=== PATIENT | male | born 1975 | race Caucasian/White ===

== ENCOUNTER 2016-08-08 04:50 | Emergency (ER) | payer SELFPAY ==
[~2016-08-08] VITALS: Ht 188 cm; Wt 83.9 kg
[~2016-08-08 04:50] MED LIST: DIL100L PO
--- NOTE | 2016-08-08 04:50 | NUR ---
PT [facility] [employer], PREBOOK. TAKEN TO BED 4
[2016-08-08 04:56] VITALS: BP 164/83
--- NOTE | 2016-08-08 05:05 | NUR ---
Dr. Fernandez evaluating patient at bedside.
--- NOTE | 2016-08-08 05:05 | NUR ---
41 Y/O M [facility] [facility] [employer] FOR PREBOOK. PATIENT HAS EPILEPSY AND HE DIDNT TAKE HIS MEDICINES. PT DENIES ANY HX OF HTN. NO S/S OF DISTRESS NOTED. ER MD AT BEDSIDE EVALUATING PT.
[2016-08-08 05:12] VITALS: BP 152/79
--- NOTE | 2016-08-08 05:12 | NUR ---
Patient discharged with v/s stable. Written and verbal after care instructions given and explained. Patient verbalized understanding. Police with in custody. All questions addressed prior to discharge. Advised to follow up with PMD.
== END 2016-08-08 05:12 ==
LOC: MED 04:50
DX: Z02.89 Encounter for other administrative examinations (principal); R03.0 Elevated blood-pressure reading, without diagnosis of hypertension; G40.909 Epilepsy, unspecified, not intractable, without status epilepticus; F17.210 Nicotine dependence, cigarettes, uncomplicated
CPT/HCPCS: 99283

== ENCOUNTER 2019-01-12 22:10 | Emergency (ER) | payer SELFPAY ==
[~2019-01-12] VITALS: Ht 188 cm; Wt 90.7 kg
--- NOTE | 2019-01-12 22:10 | NUR ---
PT [facility]. TAKEN TO BED 2
[2019-01-12 22:12] VITALS: BP 139/78
--- NOTE | 2019-01-12 22:19 | NUR ---
43 Y/O MALE BIBA BLS WITH C/O GENERALIZED BODY ACHES. PER EMS PT WAS FOUND LYING IN STREET AND FOUND BY PD. PT STATES HE HAD AN UNWITNESSED SEIZURE EARLY IN THE DAY. 7/10 BODY ACHES. ETOH INTOXICATION PER EMS. PT STATES HE HAD 10 BEERS EARLIER IN THE DAY. RR EVEN AND UNLABORED. PT CALM AND PLEASANT. AOX3. MEDHX: SEIZURES ALLERGIES: NKA
--- NOTE | 2019-01-12 22:20 | NUR ---
SEIZURE PRECAUTIONS IN PLACE AND PT PLACED ON THE MONITOR AT THIS TIME.
--- NOTE | 2019-01-12 22:59 | NUR ---
Dr. Fernandez examining patient.
[2019-01-12] MEDS ORDERED: MULTIVITAMIN-12 10 ML, THIAMINE 100 MG, FOLIC ACID 1 MG, MAGNESIUM SULFATE 50% 2,000 MG... IV SCH ×5 (23:05)
[2019-01-12] MEDS ORDERED: MULTIVITAMIN-12 10 ML VIAL IV ONE (23:11)
[2019-01-12] MEDS ORDERED: THIAMINE 200 MG/2 ML VIAL ONE (23:11)
[2019-01-12] MEDS ORDERED: FOLIC ACID 5 MG/ML SYR ONE (23:11)
[2019-01-12] MEDS ORDERED: MAG SULF 2000 MG/WATER PREMIX 50 ML IV ONE (23:28)
[2019-01-12 23:34] LABS: BASOPHILS % (AUTO) 0.6 % (0.0-2.0); EOSINOPHILS # (AUTO) 0.2 K/uL (0-0.4); EOSINOPHILS % (AUTO) 3.2 % (0.0-4.0); LYMPHOCYTES # (AUTO) 1.9 K/uL (2.0-11.5); LYMPHOCYTES % (AUTO) 34.4 % (20.5-51.1); MEAN CORPUSCULAR HEMOGLOBIN 31 pg (27-31); MEAN CORPUSCULAR HGB CONC 33 g/dL (33-37); MEAN CORPUSCULAR VOLUME 93.5 fL (80-94); MONOCYTES # (AUTO) 0.3 K/uL (0.8-1.0); MONOCYTES % (AUTO) 5.3 % (1.7-9.3); NEUTROPHILS # (AUTO) 3.1 K/uL (1.8-7.7); NEUTROPHILS % (AUTO) 56.5 % (42.2-75.2); PLATELET COUNT (AUTO) 295 K/uL (140-450); RED BLOOD CELL COUNT(AUTO) 4.49 MIL/uL (4.20-6.10); RED CELL DISTRIBUTION WIDTH 13.4 % (11.6-13.7); WHITE BLOOD COUNT (AUTO) 5.4 K/uL (4.8-10.8)
[2019-01-12 23:47] LABS: ANION GAP 15.6 (8-16); CARBON DIOXIDE 23.5 mmol/L (21-32); CHLORIDE 104 mmol/L (98-107); CREATININE 0.9 mg/dL (0.7-1.3); GFR ARICAN-AMERICAN 118 mL/min (>90); GLUCOSE 97 mg/dL (74-106); POTASSIUM 4.1 mmol/L (3.5-5.1); SODIUM SERUM 139 mmol/L (136-145); UREA NITROGEN, BLOOD 12 mg/dL (7-18)
--- NOTE | 2019-01-12 23:50 | NUR ---
PT GIVEN URINAL. URINE COLLECTED AT THIS TIME.
[2019-01-12 23:54] LABS: ALBUMIN 3.9 g/dL (3.4-5.0); ASPARTATE AMINOTRANSFERASE 18 U/L (15-37); TOTAL BILIRUBIN 0.2 mg/dL (0.0-1.0)
[2019-01-12 23:57] LABS: ACETAMINOPHEN < 0.5 ug/ml (10-30); PHENYTOIN (DILANTIN) 12.7 ug/ml (10.0-20.0); SALICYLATE < 2.8 mg/dL (2.8-20.0)
--- NOTE | 2019-01-13 00:05 | NUR ---
PT RESTING WITH EYES CLOSED. VISIBLE RISE AND FALL OF THE CHEST. RR EVEN AND UNLABORED. PT REMAINS ON THE MONITOR. VSS. WILL CONTINUE TO MONITOR.
[2019-01-13 00:16] LABS: BARBITURATE, URINE NEG. ng/ml (NEG <=200); BENZODIAZEPINE, URINE NEG. ng/mL (NEG <=200); CANNABINOID, URINE NEG. ng/mL (NEG <=50); COCAINE, URINE NEG. ng/mL (NEG <=300); OPIATE, URINE NEG. ng/mL (NEG <=2000); PHENCYCLIDINE SCREEN,URINE NEG. ng/mL (NEG <=25)
[2019-01-13] MEDS ORDERED: PHENYTOIN 100 MG CAPER PO ONE (00:30)
[2019-01-13 00:57] VITALS: BP 131/81
--- NOTE | 2019-01-13 00:57 | NUR ---
Patient discharged with v/s stable. Written and verbal after care instructions given and explained. Patient verbalized understanding. Ambulatory with steady gait. All questions addressed prior to discharge. Advised to follow up with PMD. PT STATES BROTHER IS HIS RIDE HOME
== END 2019-01-13 00:57 | disposition home or self-care (01) ==
LOC: MED 22:10
DX: F10.129 Alcohol abuse with intoxication, unspecified (principal); R56.9 Unspecified convulsions; Z79.899 Other long term (current) drug therapy
CPT/HCPCS: 36415; 80053; 80185; 80305; 85025; 93005; 96360; 99284; A9153; G0480; G0482; J3411; J3475; J3490

== ENCOUNTER 2020-06-24 08:39 | Emergency (ER) | payer SELFPAY ==
[~2020-06-24] VITALS: Ht 188 cm; Wt 86.2 kg
--- NOTE | 2020-06-24 08:39 | NUR ---
Patient BIBA BLS, transferred to bed 7. RN evaluating the patient at bedside.
[2020-06-24 08:45] VITALS: BP 143/78
--- NOTE | 2020-06-24 08:45 | NUR ---
DR ROBERSON AT BEDSIDE EXAMINING PATIENT
[2020-06-24] MEDS ORDERED: NACL 0.9% 1,000 ML IV ONE (08:50)
--- NOTE | 2020-06-24 08:52 | NUR ---
45 Y/O MALE BIBA FOUND ON STREETS, PER EMS PT STATED HE HAD AN UNWITNESSED SEIZURE. PT DENIES LOC, DENIES FEVER/CHILLS, DENIES N/V. PMH: EPILEPSY NKA
[2020-06-24 09:04] LABS: BASOPHILS % (AUTO) 0.4 % (0.0-2.0); EOSINOPHILS # (AUTO) 0.1 K/uL (0-0.4); EOSINOPHILS % (AUTO) 1.3 % (0.0-4.0); HEMATOCRIT 35.3 % (36-52); LYMPHOCYTES # (AUTO) 0.7 K/uL (2.0-11.5); LYMPHOCYTES % (AUTO) 9.8 % (20.5-51.1); MEAN CORPUSCULAR HEMOGLOBIN 32 pg (27-31); MEAN CORPUSCULAR HGB CONC 34 g/dL (33-37); MEAN CORPUSCULAR VOLUME 93.3 fL (80-94); MONOCYTES # (AUTO) 0.6 K/uL (0.8-1.0); MONOCYTES % (AUTO) 8.3 % (1.7-9.3); NEUTROPHILS % (AUTO) 80.2 % (42.2-75.2); PLATELET COUNT (AUTO) 212 K/uL (140-450); RED BLOOD CELL COUNT(AUTO) 3.78 MIL/uL (4.20-6.10); RED CELL DISTRIBUTION WIDTH 14.3 % (11.6-13.7); WHITE BLOOD COUNT (AUTO) 7.5 K/uL (4.8-10.8)
[2020-06-24 09:14] LABS: ANION GAP 12.8 (8-16); CARBON DIOXIDE 30.2 mmol/L (21-32)
--- NOTE | 2020-06-24 09:19 | NUR ---
Pt taken to CT via rkanwal.
--- NOTE | 2020-06-24 09:25 | NUR ---
Patient returned from CT scan.
--- NOTE | 2020-06-24 09:25 | NUR ---
Pt brought back to ER bde 7 via alexandra.
[2020-06-24] MEDS ORDERED: PHENYTOIN 1,000 MG in NACL 0.9% 100 ML IV SCH (10:00)
--- NOTE | 2020-06-24 10:04 | NUR ---
Spoke with pharmacy for dilantin ordered.
--- NOTE | 2020-06-24 10:30 | NUR ---
Pt sleeping, visible equal rise and fall of chest, VSS, will continue to monitor.
--- NOTE | 2020-06-24 11:35 | NUR ---
PATIENT GIVEN SANDWICH AND JUICE, SEATED UPRIGHT AWAKE AND ALERT. DENIES COMPLAINTS AT THIS TIME
--- NOTE | 2020-06-24 11:50 | NUR ---
ROAD TEST PER MD ORDER.
[2020-06-24 12:09] VITALS: BP 136/74
--- NOTE | 2020-06-24 12:10 | NUR ---
Patient discharged with v/s stable. Written and verbal after care instructions given and explained. Patient verbalized understanding. Ambulatory with steady gait. All questions addressed prior to discharge. Advised to follow up with PMD.
== END 2020-06-24 12:10 | disposition home or self-care (01) ==
LOC: MED 08:39
DX: R56.9 Unspecified convulsions (principal)
CPT/HCPCS: 36415; 70450; 80048; 80185; 85025; 93005; 96361; 96365; 99285; J1165; J7030